=== PATIENT | female | born 1985 | race Caucasian/White ===

== ENCOUNTER 2019-10-15 13:16 | Outpatient (CLI) | payer OTHER ==
--- NOTE | 2019-10-15 14:22 | ULT ---
THYROID ULTRASOUND: 10/15/19 INDICATION: Palpable lump left thyroid. FINDINGS: Right lobe of the thyroid is homogeneous and appears normal. In the left lobe there is a complex partially cystic nodular mass measuring 4.4 x 3.4 x 3.6 cm. The isthmus appears normal. IMPRESSION: Complex dominant nodule left lobe of thyroid. Patient is scheduled for ultrasound guided FNA of this thyroid lesion. POS: AGW
== END 2019-10-15 13:17 | disposition home or self-care (01) ==
LOC: BICULT 13:16
PROVIDERS: ATTEND Specialist
DX: E04.1 Nontoxic single thyroid nodule (principal)
CPT/HCPCS: 76536

== ENCOUNTER 2019-10-30 07:20 | Outpatient (CLI) | payer OTHER ==
[2019-10-30 13:51] LABS: BHCG - Serum Negative (NEGATIVE); Pregs Control Background? CLEAR/WHITE (CLR/WHITE); Pregs Control Bar Appear? YES (CONTROL BAR)
[2019-10-30 13:59] LABS: Hemoglobin 14.1 g/dL (12.0-16.0)
[2019-10-31 11:35] LABS: SARS-CoV-2 MS2 Positive; SARS-CoV-2 N Gene Negative; SARS-CoV-2 S Gene Negative; SARS-CoV-2 orf1ab Negative
== END 2019-10-30 07:21 | disposition home or self-care (01) ==
LOC: LABBT 07:20
PROVIDERS: ATTEND Specialist
DX: Z01.812 Encounter for preprocedural laboratory examination (principal); Z11.59 Encounter for screening for other viral diseases; R53.83 Other fatigue; R00.2 Palpitations; E04.1 Nontoxic single thyroid nodule
CPT/HCPCS: 84703; 85014; 85018; 87635; U0003

== ENCOUNTER 2019-11-04 10:37 | Day surgery (SDC) | payer OTHER ==
[2019-10-30 09:53] VITALS: BMI 26.5
[2019-11-04] MEDS ORDERED: PROPOFOL 200 MG/20 ML VIAL ONE (11:11)
[2019-11-04] MEDS ORDERED: Ondansetron PF 4 MG/2 ML Vial ONE (11:11)
[2019-11-04] MEDS ORDERED: Lidocaine 1% PF 5 ML VIAL ONE (11:11)
[2019-11-04] MEDS ORDERED: Dexamethasone 20 MG/5 ML VIAL ONE (11:11)
[2019-11-04] MEDS ORDERED: Rocuronium Bromide 10 MG/ML (10ML VIAL) ONE (11:11)
[2019-11-04] MEDS ORDERED: Midazolam HCl 2 mg/2 ml Vial ONE ×2 (12:34→12:41)
[2019-11-04] MEDS ORDERED: Fentanyl 100 MCG/2 ML VIAL ONE ×4 (12:34→15:27)
[2019-11-04] MEDS ORDERED: HYDROmorphone 0.5 MG/0.5 ML SYRINGE ONE (12:34)
[2019-11-04] MEDS ORDERED: Lidocaine 1% w/Epinephrine 1:100K 20 ML VIAL ONE (12:38)
[2019-11-04] MEDS ORDERED: Promethazine HCl 25 MG/ML VIAL ONE (15:11)
[2019-11-04] MEDS ORDERED: hydrALAZINE 20 MG/ML VIAL ONE (15:13)
--- NOTE | 2019-11-05 14:27 | OP ---
DATE OF PROCEDURE: 11/04/2019 PREOPERATIVE DIAGNOSES: 1. Left thyroid mass. 2. Dysphagia. POSTOPERATIVE DIAGNOSES: 1. Left thyroid mass. 2. Left hemorrhagic cyst. 3. Dysphagia. PROCEDURE PERFORMED: Left thyroid lobectomy with laryngeal nerve monitoring for 2 hours. DESCRIPTION OF PROCEDURE: After consent was obtained, the patient was identified and brought to the operating room and placed on the operating room table in supine position. General endotracheal anesthesia was obtained with a nerve integrity monitoring endotracheal tube and it was documented to be placed in the normal position using the [employer]. We then prepped and positioned the patient for surgery and then draped the patient in sterile fashion. The natural skin crease was identified in the lower skin fold with a marking pen and infiltrated with 1% lidocaine and 1:100,000 epinephrine. We then used a 15 blade to make a skin incision through the skin and subcutaneous tissues. The electrocautery was then used to transect through the platysma. Subplatysmal flaps were then elevated, and bleeding points were cauterized as they were encountered. We then put a self-retaining retractor in and divided the strap muscles in midline. We then dissected down to the thyroid capsule on the left and meticulously dissected the thyroid from the surrounding perithyroid tissues. While retracting with [place], the thyroid was able to be delivered into the wound after finger dissection around the capsule, and the inferior vessels were able to be identified, clamped, and suture ligated. We then similarly identified the superior thyroid artery and vein and the middle thyroid vein and similarly divided them between clamps and suture ligated them. This then allowed for further reflection of the thyroid medially, where the recurrent laryngeal nerve was identified and dissected all the way to the cricothyroid muscle. Upon further reflection and dissection with the bipolar cautery, we identified the thyroid ligament, which was transected further mobilizing the thyroid gland. We then transected the isthmus and sent the specimen for histologic evaluation. Prior to sending it, it was entered and copious amounts of blood were evacuated from the center of the cyst. The pathology showed benign tissue without evidence of malignancy. We then turned our attention to closing the wound. Hemostasis was obtained, and Valsalva was performed, after which no further bleeding was identified. Some procoagulant was put in the deep aspect of the wound, and the wound was closed in layers with the strap muscles being reapproximated as well as the platysma with interrupted Monocryl suture. The dermis was also closed with 5-0 Monocryl followed by 6-0 Prolene for the skin. Sterile dressing was applied. The patient was awakened, extubated, and taken to the recovery area in stable condition prior to discharge home. Job ID: [id number]
== END 2019-11-04 17:15 | disposition home or self-care (01) ==
LOC: SDC 10:37
PROVIDERS: ATTEND Specialist
PROC: 0GTG0ZZ Resection of Left Thyroid Gland Lobe, Open Approach (ICD-10-PCS; principal; 2019-11-04)
DX: E04.2 Nontoxic multinodular goiter (principal); N83.202 Unspecified ovarian cyst, left side; I10 Essential (primary) hypertension; Z79.899 Other long term (current) drug therapy
CPT/HCPCS: 88307; J0360; J1100; J1170; J2001; J2250; J2405; J2550; J2704; J3010

== ENCOUNTER 2021-04-21 09:09 | Outpatient (CLI) | payer OTHER | END 2021-04-21 09:10 | disposition home or self-care (01) | LOC: BICMAMMO 09:09 | PROVIDERS: ATTEND Physician Assistant | DX: N64.4 Mastodynia (principal) | CPT/HCPCS: 77066; G0279 ==

== ENCOUNTER 2021-12-28 10:15 | Emergency (ER) | payer OTHER ==
[2021-12-28 11:17] LABS: #Basophils 0.1 thou/uL (0.0-0.2); #Eosinphils 0.1 thou/uL (0.0-0.7); #Lymphocytes 1.6 thou/uL (1.20-3.40); #Monocytes 0.5 thou/uL (0.11-0.59); #Neutrophils 3.4 thou/uL (1.40-6.50); %Eosinophils 1.5 % (0.0-10.0); %Lymphocytes 28.5 % (21.0-51.0); %Monocytes 8.1 % (0.0-10.0); Hemoglobin 13.9 g/dL (12.0-16.0); Mean Corpuscular HGB CONC 34.5 g/dL (32.0-36.0); Mean Corpuscular Hemoglobin 32.9 pg (27.0-31.0); Mean Corpuscular Volume 95.4 fL (78.0-98.0); Mean Platelet Volume 8.7 fL (7.4-10.4); Platelet Count 235 thou/uL (130-400); RBC Distribution Width 10.7 % (11.5-14.5); Red Blood Cell (RBC) Count 4.21 mill/uL (4.20-5.40); White Blood Cell (WBC) Count 5.6 thou/uL (4.8-10.8)
[2021-12-28 11:39] LABS: ALT (SGPT) 12 U/L (8-55); AST (SGOT) 14 U/L (5-34); Albumin 4.3 g/dL (3.5-5.0); Alkaline Phosphatase 42 U/L (40-110); Anion Gap 15 mmol/L (10-20); BUN (Urea Nitrogen) 21 mg/dL (7.0-18.7); Bilirubin, Total 0.5 mg/dL (0.2-1.2); Calc. Creatinine Clearance 0 mL/min (70-130); Calcium 9.1 mg/dL (7.8-10.44); Carbon Dioxide 25 mmol/L (22-29); Chloride 104 mmol/L (98-107); Estimated GFR 105; Globulin 2.4 g/dL (2.4-3.5); Glucose 87 mg/dL (70-105); Lipase 21 U/L (8-78); Potassium 4.6 mmol/L (3.5-5.1); Protein, Total 6.7 g/dL (6.0-8.3); Sodium 139 mmol/L (136-145)
== END 2021-12-28 11:56 | disposition home or self-care (01) ==
LOC: ERS 10:15
DX: R07.9 Chest pain, unspecified (principal); R00.2 Palpitations
CPT/HCPCS: 36415; 71045; 80053; 83690; 84484; 85025; 93005